=== PATIENT | female | born 1960 | race Caucasian/White ===

== ENCOUNTER 2023-08-01 09:45 | Outpatient (CLI) | payer MEDICARE, MEDICAID, SELFPAY ==
--- NOTE | 2023-08-01 09:59 | CT_ITS ---
WS: [id number] CT ABDOMEN PELVIS TECHNIQUE: Contrast-enhanced CT of the abdomen and pelvis with coronal and sagittal reformatted image s. CLINICAL INFORMATION: VENTRAL INCISIONAL HERNIA COMPARISON: None. DLP: 756.[address] scans at [facility] use at least one of these dose optimization techniques: automated e xposure control; mA and/or kV adjustment per patient size (includes targeted exams where dose is matc hed to clinical indication); or iterative reconstruction. FINDINGS: Diffuse fatty filtration of the liver. Normal portal vein and splenic vein. Cholecystectomy clips. No rmal GE junction. Normal spleen. Lung bases are well aerated. Fatty atrophy of the pancreas. Adrenal glands are normal. Celiac and SMA are patent. Normal caliber abdominal aorta. Mild aortic calcification. Mild sigmoid constipation. No evidence of high-grade small or large bowel obstruction. No abdominal or pelvic lymphadenopathy. Tiny fat-contain ing umbilical hernia. Disc space narrowing worse at L5-S1. IMPRESSION: 1. Tiny fat-containing umbilical hernia. No other visualized abdominal wall hernias. 2. Mild diffuse fatty infiltration of the liver. 3. Normal renal parenchymal enhancement. No hydronephrosis. 4. Tortuous sigmoid colon with sigmoid constipation. 5. Disc space narrowing worse at L5-S1.
[2023-08-01] MEDS: iohexol 350 mg/mL 500 mL Btl (per mL) PO (11:31)
[2023-08-01] MEDS: iohexol 350 mg/mL 500 mL Btl (per mL) IV (11:31)
== END 2023-08-01 09:46 | disposition home or self-care (01) ==
PROVIDERS: PCP Family Medicine; Visit Provider Family Medicine
DX: K43.2 Incisional hernia without obstruction or gangrene (principal); K76.0 Fatty (change of) liver, not elsewhere classified
CPT/HCPCS: 74177; Q9967

== ENCOUNTER 2023-08-03 11:59 | Outpatient (CLI) | payer MEDICARE, MEDICAID, SELFPAY ==
--- NOTE | 2023-08-03 12:04 | MM_ITS ---
WS: [id number] BILATERAL 3D TOMOSYNTHESIS DIGITAL SCREENING MAMMOGRAPHY WITH CAD CLINICAL INFORMATION: SCREENING HISTORY: Screening mammogram. No current complaints. COMPARISON: 2017 TECHNIQUE: Bilateral CC and MLO views. FINDINGS: Scattered fibroglandular densities bilaterally. No suspicious focal mass, asymmetry, calcifications, or architectural distortion. No evidence of malignancy. Punctate and lucent centered calcifications. Vascular calcifications. Slight nodularity LEFT breast parenchymal tissue similar to previous IMPRESSION: MM/[place] [id number] BI-RADS: 2-Benign FOLLOW UP: 1 Year Follow-up Recommend return to annual screening mammography.
== END 2023-08-03 12:00 | disposition home or self-care (01) ==
LOC: RAD 12:00
PROVIDERS: PCP Family Medicine; Visit Provider Family Medicine
DX: Z12.31 Encounter for screening mammogram for malignant neoplasm of breast (principal)
CPT/HCPCS: 77063; 77067